=== PATIENT | female | born 1940 | race Caucasian/White ===

== ENCOUNTER 2025-10-19 11:36 | Emergency (ER) | payer MEDICARE, OTHER ==
[~2025-10-19] VITALS: Ht 162.6 cm; Wt 61.2 kg
[2025-10-19] MEDS ORDERED: NAPR-1009 PO (13:53)
[2025-10-19 14:07] VITALS: BP 145/76; TEMP 98; O2SAT 96
== END 2025-10-19 14:07 | disposition home or self-care (01) ==
LOC: ER 11:40
DX: S43.401A Unspecified sprain of right shoulder joint, initial encounter (principal); S50.311A Abrasion of right elbow, initial encounter; S80.02XA Contusion of left knee, initial encounter; S00.93XA Contusion of unspecified part of head, initial encounter; S80.212A Abrasion, left knee, initial encounter; E11.9 Type 2 diabetes mellitus without complications; G89.29 Other chronic pain; R51.9 Headache, unspecified; I10 Essential (primary) hypertension; Z88.1 Allergy status to other antibiotic agents; W01.0XXA Fall on same level from slipping, tripping and stumbling without subsequent striking against object, initial encounter; Y93.89 Activity, other specified; Y92.89 Other specified places as the place of occurrence of the external cause; Y99.8 Other external cause status
CPT/HCPCS: 70450-TC; 71045-TC; 72170-TC; 73030-TC; 73564-TC